=== PATIENT | female | born 1960 ===

== ENCOUNTER 2021-12-08 14:27 | Inpatient (IN) | payer MEDICARE, OTHER ==
--- NOTE | 2021-12-08 14:55 | Emergency Department Report ---
HPI - General Chief Complaint: Chest Pain Time Seen by Provider: 12/08/21 14:45 - HPI HPI: For the last 3 days the patient has been experiencing an increase in her usual vertigo for which she takes meclizine 12.5 mg p.o. twice daily and is not helping. She also complaining of left anterior chest pain that radiates to her left shoulder and left lateral thorax and she describes as sharp intermittent and present for the last 2 to 3 days. She denies numbness tingling focal weakness but does report a headache and generalized body aches for which she roselyn es [place]. She denies nausea vomiting fever chills or any other associated symptoms. Nothing makes this better nor worse. ED Past Medical Hx - Past Medical History Previous Medical History?: Yes Hx COPD: Yes Additional medical history: BRONCHITIS ,VERTIGO, fibromyalgia - Surgical History Past Surgical History?: No - Family History Family history: no significant - Social History Smoking Status: Never Smoker Substance Use Type: None - Medications Home Medications: Home Medications Medication Instructions Recorded Confirmed Last Taken Type Meclizine [Antivert] 25 mg PO TID PRN 10 Days #30 tab 12/08/21 Unknown Rx ED Review of Systems ROS: Stated complaint: BODY PAIN Other details as noted in HPI Other: Physical Exam: Constitutional: AAOX3. No acute distress. No diaphoresis. HENT: Normocephalic. Pupils equal and reactive. No throat edema or erythema. Neck: No neck rigidity or tenderness. Cardiovascular: Heart sounds: No murmur. Normal rate and regular rhythm. Pulses: Intact distal pulses. Lungs: No wheezing or rales. Chest wall: No tenderness. Abdominal: No distension. No mass/pulsatile mass. No abdominal tenderness, guarding nor rebound. Back: No CVA TTP. Musculoskeletal: Normal range of motion. No edema, No calf TTP. Skin: Warm and dry. Neurological: Alert and oriented to person, place, and time. Psychiatric: Mood and affect normal. Normal cognition and memory. Normal judgement. Physical Exam - Physical Exam Vital Signs: Vital Signs 12/08/21 14:35 Pulse Rate 84 Respiratory 18 Rate Blood Pressure 120/69 [Left] O2 Sat by Pulse 99 Oximetry ED Course Vital Signs 12/08/21 14:35 Pulse Rate 84 Respiratory 18 Rate Blood Pressure 120/69 [Left] O2 Sat by Pulse 99 Oximetry - Reevaluation(s) Reevaluation #1: 12/08/21 19:35 EKG done interpreted at 1930 shows a rate of 70, normal. The rhythm is sinus rhythm, normal. There are nonspecific T abnormalities in the anterior leads without any ST or T abnormalities. The patient required some Dilaudid while in the emergency department which made her feel better. We will be discharging her at this time and we will increase her meclizine to 25 mg 3 times daily and she will follow-up with her PCP or return if any other issues arise. ED Medical Decision Making - Lab Data Result diagrams: 12/08/21 15:05 12/08/21 15:05 Critical care attestation.: If time is entered above; I have spent that time in minutes in the direct care of this critically ill patient, excluding procedure time. ED Disposition Clinical Impression: Chronic pain, Chest pain Disposition: HOME / SELF CARE / HOMELESS Is pt being admited?: No Does the pt Need Aspirin: No Condition: Stable Instructions: Nonspecific Chest Pain, Adult Additional Instructions: Make sure to take 25 mg of meclizine every 8 hours as opposed to the 12.5 mg every 12 hours you have been prescribed before. We have included a new prescription for you. Make sure to follow-up with Dr. Ashton, the neurologist as soon as possible. Prescriptions: Meclizine [Antivert] 25 mg PO TID PRN 10 Days #30 tab PRN Reason: Vertigo Referrals: ALO SAMUEL [Other] - 3-5 Days PEDRO ASHTON MD [Staff Physician] - 3-5 Days Print Language: SLOVENIAN
--- NOTE | 2021-12-08 15:14 | XRay Report ---
CHEST 1 VIEW INDICATION: Chest Pain. COMPARISON: None FINDINGS: SUPPORT DEVICES: None. HEART: Within normal limits. LUNGS/PLEURA: Minimal patchy bibasilar airspace disease with otherwise clear lungs. ADDITIONAL FINDINGS: None. IMPRESSION: 1. Lung findings as above. Signer Name: Elmo Bauer MD Signed: 12/08/2021 3:10 PM Workstation Name: [id number]
[2021-12-08] MEDS ORDERED: MECLIZINE 25 MG TAB PO ONE (15:30)
[2021-12-08 15:33] LABS: Basophils % (Auto) 0.6 % (0.0-1.8); Eosinophils # (Auto) 0.2 K/mm3 (0.0-0.4); Eosinophils % (Auto) 2.9 % (0.0-4.3); Hematocrit 39.8 % (30.3-42.9); Hemoglobin 12.9 gm/dl (10.1-14.3); Lymphocytes # (Auto) 3.2 K/mm3 (1.2-5.4); Mean Corpuscular HGB Conc 32 % (30-34); Mean Corpuscular Volume 85 fl (79-97); Monocytes # (Auto) 0.4 K/mm3 (0.0-0.8); Monocytes % (Auto) 6.3 % (0.0-7.3); Platelet Count 252 K/mm3 (140-440); Red Cell Distribution Width 15.5 % (13.2-15.2)
[2021-12-08] MEDS ORDERED: LORazepam 2 MG/ML VIAL IV ONE (15:45)
[2021-12-08 15:55] LABS: Alanine Aminotransferase 24 units/L (7-56); Albumin 4.2 g/dL (3.9-5); Blood Urea Nitrogen 22 mg/dL (7-17); Calcium 9.7 mg/dL (8.4-10.2); Hemolysis Index 1
[2021-12-08 16:06] LABS: BUN/Creatinine Ratio 31
[2021-12-08] MEDS ORDERED: HYDROmorphone 1 MG/1 ML INJ IV ONE ×2 (16:44→23:56)
--- NOTE | 2021-12-08 17:49 | Cat Scan Report ---
CT head/brain wo con INDICATION / CLINICAL INFORMATION: 61 years Female; Headache Dizziness. TECHNIQUE: Routine CT head without contrast. All CT scans at this location are performed using CT dos e reduction for ALARA by means of automated exposure control. COMPARISON: None. FINDINGS: BRAIN / INTRACRANIAL CONTENTS: There appear to be mild cerebral white matter changes most consistent with microvascular angiopathy. The ventricles system is within normal limits in size and configuratio n. The motion degrades the image quality. However, there is no CT evidence of acute intracranial hemo rrhage or significant mass effect. There is incidental mild hyperostosis frontalis interna. ORBITS: No significant abnormality. SINUSES / MASTOIDS: There is scattered opacification and mucosal thickening involving the visualized maxillary and right sphenoid sinuses. CRANIOCERVICAL JUNCTION: No significant abnormality. ADDITIONAL FINDINGS: None. IMPRESSION: 1. The motion degrades the image quality. However, this mild microvascular angiopathy without CT evid ence of acute intracranial hemorrhage. Signer Name: Casper Fernandez MD Signed: 12/08/2021 5:44 PM Workstation Name: [id number]
[2021-12-08] MEDS ORDERED: NITROGLYCERIN 0.4 MG TAB SUBL SL PRN (21:51)
[2021-12-08] MEDS ORDERED: MAGNESIUM HYDROXIDE (MOM) ORAL LIQD UDC PO PRN (21:51)
[2021-12-08] MEDS ORDERED: MORPHINE 4 MG/1 ML INJ IV PRN (21:51)
[2021-12-08] MEDS ORDERED: MORPHINE 2 MG/1 ML INJ IV PRN ×2 (21:51)
[2021-12-08] MEDS ORDERED: ACETAMINOPHEN 325 MG TAB PO PRN ×2 (21:51)
[2021-12-08] MEDS ORDERED: ONDANSETRON 4 MG/2 ML INJ IV PRN (21:51)
--- NOTE | 2021-12-08 22:05 | History and Physical Report ---
History of Present Illness Date of examination: 12/08/21 Date of admission: 12/08/2021 Chief complaint: Chest Pain History of present illness: 61-year-old female with significant past medical history of COPD and fibromyalgia presenting to the emergency room today with complaints of vertigo which has been ongoing throughout the day. Patient states that she has had 2 episodes of vertigo today and she hardly stand straight without the room spinning. She had been taking meclizine 12.5 mg twice daily without any significant improvement. She however indicates that he subsequently started having left-sided chest pain radiating towards the left upper extremity with some associated tingling sensation. There has been no known relieving or exacerbating factor. She denies any headache, no blurry vision, no nausea or vomiting and no abdominal pain. Work-up in the emergency room today including troponins, EKG, and CT of the head has been unremarkable. Chest x-ray ordered however shows some mild patchy bibasilar airspace disease otherwise clear lungs. Past History Past Medical History: other (Fibromyalgia) Past Surgical History: No surgical history Social history: no significant social history Family history: no significant family history Medications and Allergies Allergies Allergy/AdvReac Type Severity Reaction Status Date / Time No Known Allergies Allergy Verified 12/08/21 15:28 Home Medications Medication Instructions Recorded Confirmed Last Taken Type Meclizine [Antivert] 25 mg PO TID PRN 10 Days #30 tab 12/08/21 Unknown Rx Review of Systems Constitutional: no fever, no chills Ears, nose, mouth and throat: no nasal congestion, no sore throat Cardiovascular: chest pain, no palpitations Respiratory: no cough, no shortness of breath Gastrointestinal: no abdominal pain, no nausea, no vomiting, no diarrhea Genitourinary Female: no pelvic pain, no flank pain, no dysuria Musculoskeletal: no neck pain, no low back pain Integumentary: no rash, no pruritis Neurological: no headaches, no confusion Psychiatric: no anxiety, no depression Endocrine: no polyphagia, no polydipsia, no polyuria, no nocturia Exam - Constitutional Vitals: Temp Pulse Resp BP Pulse Ox 97.2 F L 73 10 L 116/87 95 12/08/21 21:38 12/08/21 20:30 12/08/21 20:30 12/08/21 20:46 12/08/21 20:46 General appearance: Present: no acute distress, well-nourished - EENT Eyes: Present: PERRL, EOM intact. Absent: scleral icterus ENT: hearing intact, clear oral mucosa, dentition normal - Neck Neck: Present: supple, normal ROM - Respiratory Respiratory effort: normal Respiratory: bilateral: CTA - Cardiovascular Rhythm: regular Heart Sounds: Present: S1 & S2. Absent: gallop, systolic murmur, diastolic murmur, rub, click - Extremities Extremities: no ischemia, pulses intact, pulses symmetrical, No edema, normal temperature, normal color, Full ROM Peripheral Pulses: within normal limits - Abdominal General gastrointestinal: Present: soft, non-tender, non-distended, normal bowel sounds. Absent: mass - Integumentary Integumentary: Present: clear, warm, dry, normal turgor. Absent: rash - Musculoskeletal Musculoskeletal: strength equal bilaterally - Psychiatric Psychiatric: appropriate mood/affect, intact judgment & insight, memory intact, cooperative - Neurologic Neurologic: CNII-XII intact, no focal deficits, moves all extremities HEART Score - HEART Score Troponin: Troponin T < 0.010 ng/mL (0.00-0.029) 12/08/21 17:46 Results - Labs CBC & Chem 7: 12/08/21 15:05 12/08/21 15:05 Labs: Abnormal lab results 12/08/21 12/08/21 Range/Units 15:05 15:05 MCH 27 L (28-32) pg RDW 15.5 H (13.2-15.2) % Lymph % (Auto) 55.0 H (13.4-35.0) % Seg Neutrophils % 35.2 L (40.0-70.0) % Chloride 108.3 H (98-107) mmol/L Carbon Dioxide 21 L (22-30) mmol/L BUN 22 H (7-17) mg/dL Alkaline Phosphatase 227 H (35-129) units/L Assessment and Plan - Patient Problems (1) Chest pain Current Visit: Yes Status: Acute Plan to address problem: Etiology is unclear. Will however check serial cardiac enzymes, schedule for echocardiogram and also monitor EKG. We will commence on daily aspirin, sublingual nitroglycerin and IV morphine as needed for chest pain. Consult placed to cardiology for evaluation. (2) Chronic pain Current Visit: Yes Status: Acute Plan to address problem: Patient has known history of fibromyalgia. Will place on analgesic medication as needed. (3) Vertigo Current Visit: Yes Status: Acute Plan to address problem: We will resume patient on meclizine. Consult will be placed to neurology for evaluation and recommendations. May consider MRI of the brain if no improvement. (4) DVT prophylaxis Current Visit: Yes Status: Acute Plan to address problem: Patient placed on subcutaneous heparin. (5) Full code status Current Visit: Yes Status: Acute Plan to address problem: Patient is full code.
[2021-12-08] MEDS ORDERED: MECLIZINE 25 MG TAB PO PRN (23:28)
[2021-12-09 05:32] LABS: Basophils % (Auto) 0.5 % (0.0-1.8); Eosinophils # (Auto) 0.2 K/mm3 (0.0-0.4); Eosinophils % (Auto) 3.4 % (0.0-4.3); Hematocrit 38.7 % (30.3-42.9); Hemoglobin 12.5 gm/dl (10.1-14.3); Lymphocytes # (Auto) 2.8 K/mm3 (1.2-5.4); Lymphocytes % (Auto) 52.1 % (13.4-35.0); Mean Corpuscular HGB Conc 32 % (30-34); Mean Corpuscular Volume 84 fl (79-97); Monocytes # (Auto) 0.4 K/mm3 (0.0-0.8); Platelet Count 242 K/mm3 (140-440); Red Blood Count 4.61 M/mm3 (3.65-5.03); Red Cell Distribution Width 15.3 % (13.2-15.2)
[2021-12-09] MEDS: traMADol 50 MG TAB PO PRN ×2 (05:51→12:21)
--- NOTE | 2021-12-09 08:12 | Consultation ---
History of Present Illness Consult date: 12/09/21 Reason for Consult: CP and vertigo,Hx of Fibromyalgia History of present illness: Chest Pain History of present illness: 61-year-old female with significant past medical history of COPD and fibromyalgia presenting to the emergency room today with complaints of vertigo which has been ongoing throughout the day. Patient states that she has had 2 episodes of vertigo today and she hardly stand straight without the room spinning. She had been taking meclizine 12.5 mg twice daily without any significant improvement. She however indicates that he subsequently started having left-sided chest pain radiating towards the left upper extremity with some associated tingling sensation. There has been no known relieving or exacerbating factor. She denies any headache, no blurry vision, no nausea or vomiting and no abdo conrad pain. Work-up in the emergency room today including troponins, EKG, and CT of the head has been unremarkable. Chest x-ray ordered however shows some mild patchy bibasilar airspace disease otherwise clear lungs. Today she is still with headache more left shoulder radiate to chest according to her she is with hx of left rotator cuff and long standing hx of Fibromyalgia was followed by Pain clinic and currently by her PCP ,did not see neurologist for a while she is with long standing hx of Migraine , according to her for the last 10 years she is with daily headache at time associated with nausea and sensitivity to light she is placed on Topamax 100 mg bid , Neurontine,flexeril,welbutrinXr 450 mg daily on chronic Oxycodon 10 mg tid for years wants deluaudid !!!! According to pt. she is with new onst vertigo when she turn head right or left last 3-4 minutes no nausea , had same in october was treated with antivert she is with long hx of fibromyalgia and sleeping difficulty denied focal weakness or diblpia, Past History Past Medical History: other (Fibromyalgia) Past Surgical History: No surgical history Social history: no significant social history Family history: no significant family history Medications and Allergies Allergies Allergy/AdvReac Type Severity Reaction Status Date / Time No Known Allergies Allergy Verified 12/08/21 15:28 Home Medications Medication Instructions Recorded Confirmed Last Taken Type Meclizine [Antivert] 25 mg PO TID PRN 10 Days #30 tab 12/08/21 Unknown Rx Review of Systems Constitutional: no fever, no chills Ears, nose, mouth and throat: no nasal congestion, no sore throat Cardiovascular: chest pain, no palpitations Respiratory: no cough, no shortness of breath Gastrointestinal: no abdominal pain, no nausea, no vomiting, no diarrhea Genitourinary Female: no pelvic pain, no flank pain, no dysuria Musculoskeletal: no neck pain, no low back pain Integumentary: no rash, no pruritis Neurological: no headaches, no confusion Psychiatric: no anxiety, no depression Endocrine: no polyphagia, no polydipsia, no polyuria, no nocturia Exam Past History Past Medical History: other (Fibromyalgia) Past Surgical History: No surgical history Social history: no significant social history Family history: no significant family history Medications and Allergies Allergies Allergy/AdvReac Type Severity Reaction Status Date / Time morphine Allergy Angioedema Verified 12/09/21 00:30 Home Medications Medication Instructions Recorded Confirmed Last Taken Type Meclizine [Antivert] 25 mg PO TID PRN 10 Days #30 tab 12/08/21 Unknown Rx Gabapentin [Neurontin] 800 mg PO Q8H 12/09/21 12/09/21 12/07/21 History Hydroxyzine HCl [hydrOXYzine] 50 mg PO QHS 12/09/21 12/09/21 12/06/21 History Topiramate [Topamax] 100 mg PO BID 12/09/21 12/09/21 12/06/21 History Umeclidinium Brm/Vilanterol Tr 1 each IH DAILY 12/09/21 12/09/21 12/07/21 History [Anoro Ellipta 62.5-25 Mcg INH] buPROPion XL [Wellbutrin Xl] 300 mg PO QAM 12/09/21 12/09/21 12/07/21 History Active Meds: Active Medications Acetaminophen (Acetaminophen 325 Mg Tab) 650 mg PO Q4H PRN PRN Reason: Pain MILD(1-3)/Fever >100.5/RODRIGUEZ Aspirin (Aspirin Ec 325 Mg Tab) 325 mg PO QDAY KENNEY Magnesium Hydroxide (Magnesium Hydroxide (Mom) Oral Liqd Udc) 30 ml PO Q4H PRN PRN Reason: Constipation Meclizine HCl (Meclizine 25 Mg Tab) 25 mg PO Q8H PRN PRN Reason: Vertigo Nitroglycerin (Nitroglycerin 0.4 Mg Tab Subl) 0.4 mg SL Q5M PRN PRN Reason: Chest Pain Ondansetron HCl (Ondansetron 4 Mg/2 Ml Inj) 4 mg IV Q8H PRN PRN Reason: Nausea And Vomiting Last Admin: 12/09/21 00:39 Dose: 4 mg Sodium Chloride (Sodium Chloride 0.9% 10 Ml Flush Syringe) 10 ml IV BID KENNEY Last Admin: 12/09/21 05:54 Dose: 10 ml Sodium Chloride (Sodium Chloride 0.9% 10 Ml Flush Syringe) 10 ml IV PRN PRN PRN Reason: LINE FLUSH Tramadol HCl (Tramadol 50 Mg Tab) 50 mg PO Q6H PRN PRN Reason: Pain, Moderate (4-6) Last Admin: 12/09/21 05:51 Dose: 50 mg Physical Examination - Vital Signs Vital Signs: Vital Signs Pulse Resp BP Pulse Ox 84 18 120/69 99 12/08/21 14:35 12/08/21 14:35 12/08/21 14:35 12/08/21 14:35 Results - Laboratory Findings CBC and BMP: 12/09/21 04:27 12/08/21 15:05 Abnormal Lab Findings: Abnormal Labs 12/08/21 12/08/21 12/09/21 15:05 15:05 04:27 MCH 27 L 27 L RDW 15.5 H 15.3 H Lymph % (Auto) 55.0 H 52.1 H [place] % (Auto) 8.0 H Seg Neutrophils % 35.2 L 36.0 L Chloride 108.3 H Carbon Dioxide 21 L BUN 22 H Alkaline Phosphatase 227 H Assessment and Plan 61-year-old female with significant past medical history of COPD and fibromyalgia presenting to the emergency room today with complaints of vertigo which has been ongoing throughout the day. Patient states that she has had 2 episodes of vertigo today and she hardly stand straight without the room spinning. She had been taking meclizine 12.5 mg twice daily without any significant improvement. She however indicates that he subsequently started having left-sided chest pain radiating towards the left upper extremity with some associated tingling sensation. There has been no known relieving or exacerbating factor. She denies any headache, no blurry vision, no nausea or vomiting and no abdominal pain. - Patient Problems # Vertigo recurrent started In early October related to head motion -Associated with Headache chronic -Hx of Fibromyalgia on [facility] pharmacy with lack of significant improvment -CT brain is remarkable for possible angiopathy -MRI brain is pending -CTA brain and neck r/o dissection!!! -mantain ASA 325 mg and Lipitor -LDL,A1C are pending - maintain home medications { Oxycodon 10/325 mgtid,Flexeril 10 mg tid,Neurontine decrease to 400 mg tid, welbutrinXr 450 mg daily, topamax 100 mg bid} -Trial of scopolamin patch q 3 days -Amitriptylin 50 mg qhs -ESR -PT therapy # Chronic headache -for years add to her problem -she is on Topamax 100 mg BID with lack of much improvment -intake of pain medications for years # Hx of Fibromyalgia -with chronic muscle ache and pain -left shoulder rotator cuff -pt. is on multiple medications -Pt therapy -rheumatology/neurology/Chronic pain managment follow up !!! # Diabetes mellitus -Patient placed on sliding scale insulin. Will monitor Accu-Cheks.- # Depression -We will resume routine home medications. # Hyperlipidemia -Continue routine home medications and monitor lipid profile. # Hypertension -We will resume routine antihypertensive medication and monitor vital signs closely. # DVT prophylaxis -Patient placed on subcutaneous heparin. # Full code status -Patient is full code. PLAN 1- MRI brain 2- CTA brain and neck 3- Echo 4- ESR 5- PT therapy 6- maintain home medications 7- Scopolamine patch q 3 days prn for vertigo 8- Elevil 50 mg qhs. 9- neurology follow up and rheumatology , pain clinic will follow as needed
--- NOTE | 2021-12-09 11:00 | Consultation ---
History of Present Illness Consult date: 12/09/21 Consult reason: chest pain History of present illness: 61-year-old -[place] female who is presented with symptoms of vertigo and migraine headaches. She had complained about pain in the head which radiates down her neck and chest and for this symptoms cardiology consult was obtained Past History Past Medical History: other (Fibromyalgia, Migraine, and Vertigo) Past Surgical History: No surgical history Social history: no significant social history Family history: no significant family history Medications and Allergies Allergies Allergy/AdvReac Type Severity Reaction Status Date / Time morphine Allergy Angioedema Verified 12/09/21 00:30 Home Medications Medication Instructions Recorded Confirmed Last Taken Type Meclizine [Antivert] 25 mg PO TID PRN 10 Days #30 tab 12/08/21 Unknown Rx Gabapentin [Neurontin] 800 mg PO Q8H 12/09/21 12/09/21 12/07/21 History Hydroxyzine HCl [hydrOXYzine] 50 mg PO QHS 12/09/21 12/09/21 12/06/21 History Topiramate [Topamax] 100 mg PO BID 12/09/21 12/09/21 12/06/21 History Umeclidinium Brm/Vilanterol Tr 1 each IH DAILY 12/09/21 12/09/21 12/07/21 History [Anoro Ellipta 62.5-25 Mcg INH] buPROPion XL [Wellbutrin Xl] 300 mg PO QAM 12/09/21 12/09/21 12/07/21 History Active Meds: Active Medications Acetaminophen (Acetaminophen 325 Mg Tab) 650 mg PO Q4H PRN PRN Reason: Pain MILD(1-3)/Fever >100.5/RODRIGUEZ Aspirin (Aspirin Ec 325 Mg Tab) 325 mg PO QDAY KENNEY Magnesium Hydroxide (Magnesium Hydroxide (Mom) Oral Liqd Udc) 30 ml PO Q4H PRN PRN Reason: Constipation Meclizine HCl (Meclizine 25 Mg Tab) 25 mg PO Q8H PRN PRN Reason: Vertigo Nitroglycerin (Nitroglycerin 0.4 Mg Tab Subl) 0.4 mg SL Q5M PRN PRN Reason: Chest Pain Ondansetron HCl (Ondansetron 4 Mg/2 Ml Inj) 4 mg IV Q8H PRN PRN Reason: Nausea And Vomiting Last Admin: 12/09/21 00:39 Dose: 4 mg Sodium Chloride (Sodium Chloride 0.9% 10 Ml Flush Syringe) 10 ml IV BID KENNEY Last Admin: 12/09/21 05:54 Dose: 10 ml Sodium Chloride (Sodium Chloride 0.9% 10 Ml Flush Syringe) 10 ml IV PRN PRN PRN Reason: LINE FLUSH Tramadol HCl (Tramadol 50 Mg Tab) 50 mg PO Q6H PRN PRN Reason: Pain, Moderate (4-6) Last Admin: 12/09/21 05:51 Dose: 50 mg Review of Systems Constitutional: no weight loss, no weight gain, no fever, no chills Ears, nose, mouth and throat: deferred Breasts: deferred Cardiovascular: no chest pain, no orthopnea, no palpitations, no edema, no sh ortness of breath Respiratory: no cough, no shortness of breath, no dyspnea on exertion, no congestion Gastrointestinal: no abdominal pain, no nausea, no vomiting, no diarrhea, no constipation Genitourinary Female: no pelvic pain, no flank pain, no menorrhagia Rectal: no pain, no incontinence Musculoskeletal: neck pain, no neck stiffness Integumentary: no rash, no pruritis Neurological: migraines Endocrine: no cold intolerance, no heat intolerance, no polyphagia, no excessive thirst, no polydipsia, no polyuria Hematologic/Lymphatic: no easy bruising, no easy bleeding Allergic/Immunologic: no urticaria, no allergic rhinitis, no wheezing Physical Examination Vital Signs Pulse Resp BP Pulse Ox 84 18 120/69 99 12/08/21 14:35 12/08/21 14:35 12/08/21 14:35 12/08/21 14:35 General appearance: no acute distress HEENT: Positive: PERRL, Normocephaly, Mucus Membranes Moist Neck: Positive: neck supple, trachea midline. Negative: JVD/HJR Cardiac: Positive: Reg Rate and Rhythm, S1/S2. Negative: S3, S4 Lungs: Positive: Normal Exam, clear to auscultation, No Wheeze, Rales, Rhonchi Neuro: Positive: Grossly Intact Abdomen: Positive: Unremarkable, Soft Extremities: Absent: edema Results 12/09/21 04:27 12/08/21 15:05 Cardiac Enzymes 12/08/21 Range/Units 15:05 AST 15 (5-40) units/L CBC 12/08/21 12/09/21 Range/Units 15:05 04:27 WBC 5.9 5.4 (4.5-11.0) K/mm3 RBC 4.70 4.61 (3.65-5.03) M/mm3 Hgb 12.9 12.5 (10.1-14.3) gm/dl Hct 39.8 38.7 (30.3-42.9) % Plt Count 252 242 (140-440) K/mm3 Lymph # (Auto) 3.2 2.8 (1.2-5.4) K/mm3 [place] # (Auto) 0.4 0.4 (0.0-0.8) K/mm3 Eos # (Auto) 0.2 0.2 (0.0-0.4) K/mm3 Baso # (Auto) 0.0 0.0 (0.0-0.1) K/mm3 Comprehensive Metabolic Panel 12/08/21 Range/Units 15:05 Sodium 139 (137-145) mmol/L Potassium 4.3 (3.6-5.0) mmol/L Chloride 108.3 H (98-107) mmol/L Carbon Dioxide 21 L (22-30) mmol/L BUN 22 H (7-17) mg/dL Creatinine 0.7 (0.6-1.2) mg/dL Glucose 87 (65-100) mg/dL Calcium 9.7 (8.4-10.2) mg/dL AST 15 (5-40) units/L ALT 24 (7-56) units/L Alkaline Phosphatase 227 H (35-129) units/L Total Protein 6.9 (6.3-8.2) g/dL Albumin 4.2 (3.9-5) g/dL - EKG Interpretation EKG: sinus rhythm EKG interpretations - Telemetry EKG Rhythm: Sinus Rhythm Assessment and Plan 1. Paroxysmal vertigo 2. Acute migraine headaches 3. History of fibromyalgia Plan. Patient is currently stable patient's rhythm is sinus. Serial troponin levels are negative Patient's presenting symptoms are noncardiac. Will recommend neurologic evaluation
[2021-12-09] MEDS ORDERED: TOPIRAMATE TAB 100 MG TAB PO SCH (12:00)
[2021-12-09] MEDS: ASPIRIN EC 325 MG TAB PO SCH (12:21)
--- NOTE | 2021-12-09 12:31 | Progress Note ---
Assessment and Plan 61-year-old female with significant past medical history of COPD and fibromyalgia presenting to the emergency room with complaints of vertigo which has been ongoing throughout the day. Patient states that she has had 2 episodes of vertigo yesterday and she hardly stand straight without the room spinning. She had been taking meclizine 12.5 mg twice daily without any significant improvement. She however indicates that he subsequently started having left- sided chest pain radiating towards the left upper extremity with some associated tingling sensation. There has been no known relieving or exacerbating factor. She denies any headache, no blurry vision, no nausea or vomiting and no abdominal pain. Patient has been admitted for further evaluation and management. 12/09: Patient has been seen by neurology and cardiology. Cardiology recommended to continue neurology work-up and did not recommend any further cardiac intervention. 1- MRI brain 2- CTA brain and neck 3- Echo 4- ESR 5- PT therapy 6- maintain home medications 7- Scopolamine patch q 3 days prn for vertigo 8- Elevil 50 mg qhs. Assessment and plan: --Noncardiac chest pain, likely related to her migraine headache Cardiology consulted and recommended neurology work-up Continue to follow clinically -- Vertigo -recurrent started In early October related to head motion and Associated with Headache chronic -Hx of Fibromyalgia on [facility] with lack of significant improvment -CT brain is remarkable for possible angiopathy -Neurology consulted -Ordered for MRI brain and CTA brain and neck r/o dissection!!! -Continue ASA 325 mg and Lipitor -LDL,A1C are pending -Trial of scopolamin patch q 3 days -Amitriptylin 50 mg qhs -Ordered ESR -PT therapy -- Chronic headache, likely migraine -for years add to her problem -she is on Topamax 100 mg BID with lack of much improvement -intake of pain medications for years -- Hx of Fibromyalgia -- cont home medications (Oxycodon 10/325 mgtid,Flexeril 10 mg tid,Neurontine decrease to 400 mg tid) -Pt therapy -rheumatology/neurology/Chronic pain managment outpt follow up !!! -- Diabetes mellitus -Patient placed on sliding scale insulin. Will monitor Accu-Cheks.- -- Depression -We will resume routine home medications - welbutrinXr 450 mg daily -- Hyperlipidemia -Continue routine home medications and monitor lipid profile. -- Hypertension -We will resume routine antihypertensive medication and monitor vital signs closely. -- DVT prophylaxis -Patient placed on subcutaneous heparin. -- Full code status -Patient is full code. Subjective Date of service: 12/09/21 Interval history: Patient seen and examined. Medical records and medication list reviewed. No acute event overnight noted by the RN. Patient denies any chest pain or difficulty breathing. Patient is tolerating diet. Discussed plan of care at bedside with patient. Objective - Exam Narrative Exam: GENERAL: well-developed and well-nourished lying on bed appeared to be in no discomfort. HEENT: Normocephalic. Atraumatic. No conjunctival congestion or icterus. Patient has moist mucous membranes. NECK: Supple. Trachea midline. CHEST/LUNGS: Clear to auscultated bilaterally, breathing nonlabored. No wheezes crackles or rhonchi. HEART/CARDIOVASCULAR: Regular in rate and rhythm. S1 and S2 positive. ABDOMEN: Abdomen is soft, nontender. Patient has normal bowel sounds. SKIN: There is no rash. Warm and dry. NEURO: No focal motor deficit. Follows command. MUSCULOSKELETAL: No joint effusion or tenderness. EXTRIMITY: No edema, no cyanosis or clubbing. PSYCH: Cooperative. - Constitutional Vitals: Vital Signs - 12hr 12/09/21 12/09/21 12/09/21 00:30 00:40 00:50 Temperature Pulse Rate 83 85 84 Respiratory 17 14 16 Rate Blood Pressure 96/63 96/63 96/63 O2 Sat by Pulse 95 96 92 Oximetry 12/09/21 12/09/21 12/09/21 01:00 01:10 01:20 Temperature Pulse Rate 85 85 83 Respiratory 20 13 21 Rate Blood Pressure 96/63 96/63 96/63 O2 Sat by Pulse 92 92 Oximetry 12/09/21 12/09/21 12/09/21 01:57 02:58 07:23 Temperature 97.4 F L 98.9 F Pulse Rate 80 97 H Respiratory 20 18 Rate Blood Pressure 104/72 95/58 O2 Sat by Pulse 97 97 98 Oximetry 12/09/21 10:00 Temperature Pulse Rate 97 H Respiratory Rate Blood Pressure O2 Sat by Pulse Oximetry - Labs CBC & Chem 7: 12/09/21 04:27 12/08/21 15:05 Labs: Abnormal lab results 0512/08/21 12/09/21 Range/Units 15:05 15:05 04:27 MCH 27 L 27 L (28-32) pg RDW 15.5 H 15.3 H (13.2-15.2) % Lymph % (Auto) 55.0 H 52.1 H (13.4-35.0) % [place] % (Auto) 8.0 H (0.0-7.3) % Seg Neutrophils % 35.2 L 36.0 L (40.0-70.0) % Chloride 108.3 H (98-107) mmol/L Carbon Dioxide 21 L (22-30) mmol/L BUN 22 H (7-17) mg/dL Alkaline Phosphatase 227 H (35-129) units/L HEART Score - HEART Score Troponin: Troponin T < 0.010 ng/mL (0.00-0.029) 12/09/21 04:27
[2021-12-09] MEDS ORDERED: oxyCODONE /ACETAMINOPHEN 5-325MG TAB PO PRN (12:59)
[2021-12-09] MEDS ORDERED: NON-FORMULARY EACH (Gabapentin [Neurontin] 800 MG Tablet) PO SCH (13:00)
[2021-12-09] MEDS: GABAPENTIN 400 MG CAP PO SCH ×2 (13:59→21:12)
[2021-12-09] MEDS: oxyCODONE /ACETAMINOPHEN 5-325MG TAB PO PRN ×2 (13:59→21:16)
[2021-12-09] MEDS ORDERED: GABAPENTIN 400 MG CAP PO SCH (14:00)
[2021-12-09] MEDS: buPROPion XL 150 MG TAB PO SCH (14:26)
[2021-12-09] MEDS: SCOPOLAMINE TRANSDERMAL PATCH 72 HR TD SCH (14:26)
[2021-12-09] MEDS: BUDESONIDE 0.5 MG/2 ML NEBU IH SCH (14:57)
[2021-12-09] MEDS: ARFORMOTEROL 15 MCG/2 ML NEBU IH SCH (14:58)
[2021-12-09] MEDS: TOPIRAMATE TAB 100 MG TAB PO SCH (21:12)
[2021-12-09] MEDS: AMITRIPTYLINE 25 MG TAB PO SCH (21:13)
[2021-12-09] MEDS: NALDEMEDINE TOSYLATE 0.2 MG PO SCH (21:13)
[2021-12-09] MEDS ORDERED: NON-FORMULARY EACH (Hydroxyzine Hcl [Hydroxyzine] 50 MG Tablet) PO SCH (22:00)
[2021-12-10] MEDS: GABAPENTIN 400 MG CAP PO SCH ×3 (05:12→21:21)
[2021-12-10] MEDS: oxyCODONE /ACETAMINOPHEN 5-325MG TAB PO PRN ×3 (05:12→16:41)
[2021-12-10] MEDS ORDERED: REGADENOSON 0.4 MG/5 ML INJ IV ONE (09:00)
[2021-12-10] MEDS: buPROPion XL 150 MG TAB PO SCH (09:09)
[2021-12-10] MEDS: TOPIRAMATE TAB 100 MG TAB PO SCH ×2 (09:10→21:21)
[2021-12-10] MEDS: traMADol 50 MG TAB PO PRN ×2 (09:11→21:23)
[2021-12-10] MEDS: ASPIRIN EC 325 MG TAB PO SCH (09:11)
[2021-12-10] MEDS: NALDEMEDINE TOSYLATE 0.2 MG PO SCH (09:12)
[2021-12-10] MEDS: ARFORMOTEROL 15 MCG/2 ML NEBU IH SCH ×3 (09:42→20:46)
[2021-12-10] MEDS: BUDESONIDE 0.5 MG/2 ML NEBU IH SCH ×3 (09:42→20:46)
--- NOTE | 2021-12-10 11:18 | Progress Note ---
Assessment and Plan 1. Paroxysmal vertigo 2. Acute migraine headaches 3. History of fibromyalgia Plan. Patient is currently stable patient's rhythm is sinus. Serial troponin levels are negative. Echocardiogram done shows normal left ventricular size and function. Patient's presenting symptoms are noncardiac. Will recommend neurologic evaluation Patient had breakfast today stress MPI not done. This test given high or low pretest probability for ischemic coronary artery disease can be done as an outpatient. Subjective Date of service: 12/10/21 Interval history: No cardiac symptoms. Objective Vital Signs Temp Pulse Resp BP Pulse Ox 12/10/21 10:00 86 12/10/21 08:54 14 98 12/10/21 07:48 97.6 F 79 18 95/58 99 12/10/21 05:11 77 18 102/61 97 12/10/21 02:00 85 98 12/10/21 01:24 97.3 F L 76 18 93/65 97 12/09/21 19:45 97.2 F L 90 16 99/71 97 12/09/21 15:23 98.0 F 83 18 115/74 97 12/09/21 14:00 98 - Physical Examination HEENT: Positive: PERRL, Normocephaly, Mucus Membranes Moist Neck: Positive: neck supple, trachea midline. Negative: JVD/HJR Cardiac: Positive: Regular Rate, S1/S2. Negative: S3, S4 Lungs: Positive: clear to auscultation, No Wheeze, Rales, Rhonchi Neuro: Positive: Grossly Intact Abdomen: Positive: Unremarkable, Soft Extremities: Absent: edema
--- NOTE | 2021-12-10 12:40 | Discharge Summary ---
Providers - Providers Date of Admission: 12/08/21 21:51 Date of discharge: 12/10/21 Attending physician: RITESH ZAFAR 12/08/21 Consult to Cardiac Rehabilitation [CONS] Routine Reason For Exam: Phase I 12/08/21 21:51 Consult to Cardiology [CONS] Routine Consulting Provider: BELKYS VARGHESE Reason For Exam: CHEST PAIN 12/08/21 23:28 Consult to Physician [CONS] Routine Comment: Consulting Provider: ROLANDO SPARKS Physician Instructions: Reason For Exam: Intractable vertigo 12/09/21 12:24 Physical Therapy Evaluation and Treat [CONS] Routine Comment: Reason For Exam: Debility Hospitalization Condition: Stable Disposition: 01 HOME / SELF CARE / HOMELESS Final Discharge Diagnosis (Prints w/discharge instructions): 1. Paroxysmal vertigo. 2. Acute migraine headaches. 3. History of fibromyalgia Time spent for discharge: 34 minutes Core Measure Documentation - Palliative Care Palliative Care/ Comfort Measures: Not Applicable - Core Measures Any of the following diagnoses?: none Exam - Physical Exam Narrative exam: GENERAL: well-developed and well-nourished lying on bed appeared to be in no discomfort. HEENT: Normocephalic. Atraumatic. No conjunctival congestion or icterus. Patient has moist mucous membranes. NECK: Supple. Trachea midline. CHEST/LUNGS: Clear to auscultated bilaterally, breathing nonlabored. No wheezes crackles or rhonchi. HEART/CARDIOVASCULAR: Regular in rate and rhythm. S1 and S2 positive. ABDOMEN: Abdomen is soft, nontender. Patient has normal bowel sounds. SKIN: There is no rash. Warm and dry. NEURO: No focal motor deficit. Follows command. MUSCULOSKELETAL: No joint effusion or tenderness. EXTRIMITY: No edema, no cyanosis or clubbing. PSYCH: Cooperative. - Constitutional Vitals: Temp Pulse Resp BP Pulse Ox 97.6 F 86 14 95/58 98 12/10/21 07:48 12/10/21 10:00 12/10/21 08:54 12/10/21 07:48 12/10/21 08:54 Plan Activity: advance as tolerated Weight Bearing Status: Weight Bear as Tolerated Diet: low fat, low salt Follow up with: ALO SAMUEL [Other] - 3-5 Days PEDRO ASHTON MD [Staff Physician] - 3-5 Days HONORIO JUAN MD [Staff Physician] - 7 Days Prescriptions: Amitriptyline [Elavil] 50 mg PO QHS #14 tablet Meclizine [Antivert] 25 mg PO TID PRN 10 Days #30 tab PRN Reason: Vertigo Scopolamine [Transderm-Scop] 1 each TD Q3D #7 patch
--- NOTE | 2021-12-10 16:25 | Cat Scan Report ---
CTA NECK WITH CONTRAST 12/10/2021 INDICATION / CLINICAL INFORMATION: vertigo. And headache COMPARISON: None. TECHNIQUE: Routine CTA of the neck is performed. 3-D/MIP reformats were postprocessed. Percentage st enosis is determined by direct quantitative measurements of diseased internal carotid artery diameter compared with normal distal internal carotid artery reference segments or by criteria similar to DHARMESH CET where applicable. All CT scans at this location are performed using CT dose reduction for ALARA b y means of automated exposure control. CONTRAST: 100 ml of Omnipaque 350 FINDINGS: Carotid bifurcations: The bifurcations are positioned medially posterior to the larynx. This is a nor mal acquired variant. There is no evidence of carotid bifurcation stenosis. Carotid arteries: No significant abnormality. Cervical vertebral arteries: Vertebral arteries are relatively hypoplastic on a developmental basis, normal variant. Aortic arch: No significant abnormality. None. IMPRESSION: No significant abnormality. Signer Name: Jesse Celaya MD Signed: 12/10/2021 4:21 PM Workstation Name: [id number]
--- NOTE | 2021-12-10 16:30 | Cat Scan Report ---
CTA HEAD WITH CONTRAST 12/10/2021 HISTORY: vertigo. COMPARISON: None. TECHNIQUE: All CT scans at this location are performed using CT dose reduction for ALARA by means of automated exposure control.. 3-D/MIP reformats postprocessed. Percentage stenosis is determined by d irect quantitative measurements of diseased internal carotid artery diameter compared with normal dis [place] internal carotid artery reference segments or by criteria similar to NASCET where applicable. CONTRAST: 100 ml of Omnipaque 350 FINDINGS: CTA HEAD: Intracranial vertebral arteries: Hypoplastic on a developmental basis. Normal variant Basilar artery: Hypoplastic on a developmental basis. Normal variant Posterior cerebral arteries: No significant abnormality. Relatively prominent posterior to indicating arteries are present bilaterally,. Intracranial internal carotid arteries: No significant abnormality. Anterior cerebral arteries: No significant abnormality. Middle cerebral arteries: No significant abnormality. Dural venous sinuses:Not optimally opacified. No significant abnormality. Additional findings: None. IMPRESSION: 1. No significant abnormality. Signer Name: Jesse Celaya MD Signed: 12/10/2021 4:26 PM Workstation Name: [id number]
--- NOTE | 2021-12-10 20:16 | Electrocardiograph Report ---
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
[2021-12-10] MEDS: AMITRIPTYLINE 25 MG TAB PO SCH (21:21)
[2021-12-11] MEDS: GABAPENTIN 400 MG CAP PO SCH ×3 (06:48→21:40)
[2021-12-11] MEDS: traMADol 50 MG TAB PO PRN ×2 (08:43→21:42)
[2021-12-11] MEDS: TOPIRAMATE TAB 100 MG TAB PO SCH ×2 (09:24→21:40)
[2021-12-11] MEDS: BUDESONIDE 0.5 MG/2 ML NEBU IH SCH ×2 (09:24→20:06)
[2021-12-11] MEDS: buPROPion XL 150 MG TAB PO SCH (09:24)
[2021-12-11] MEDS: ASPIRIN EC 325 MG TAB PO SCH (09:24)
[2021-12-11] MEDS: ARFORMOTEROL 15 MCG/2 ML NEBU IH SCH ×2 (09:25→20:06)
[2021-12-11] MEDS: NALDEMEDINE TOSYLATE 0.2 MG PO SCH (09:25)
--- NOTE | 2021-12-11 09:41 | Progress Note ---
Assessment and Plan 1. Paroxysmal vertigo 2. Acute migraine headaches 3. History of fibromyalgia Plan. Patient is currently stable patient's rhythm is sinus. Serial troponin levels are negative. Echocardiogram done shows normal left ventricular size and function. Patient's presenting symptoms are noncardiac. Will recommend neurologic evaluation Patient had breakfast today stress MPI not done. This test given low pretest probability for ischemic coronary artery disease can be done as an outpatient. Subjective Date of service: 12/11/21 Interval history: No cardiac symptoms. Objective Vital Signs Temp Pulse Pulse Resp Resp BP Pulse Ox 12/11/21 08:09 98.7 F 84 112/80 99 12/11/21 04:11 98.2 F 84 18 100/60 99 12/11/21 02:00 88 12/11/21 00:11 98.5 F 89 19 95/58 98 12/10/21 20:47 88 16 12/10/21 20:07 98.1 F 84 20 93/55 98 12/10/21 20:00 98 12/10/21 16:47 97.8 F 81 18 91/66 98 12/10/21 15:16 97.1 F L 90 22 124/93 99 12/10/21 11:57 98.5 F 87 18 96/59 96 12/10/21 10:00 86 - Physical Examination HEENT: Positive: PERRL, Normocephaly, Mucus Membranes Moist Neck: Positive: neck supple, trachea midline. Negative: JVD/HJR Cardiac: Positive: Regular Rate, S1/S2, PMI, Laterally Displaced. Negative: S3, S4 Lungs: Positive: clear to auscultation, No Wheeze, Rales, Rhonchi Neuro: Positive: Grossly Intact Abdomen: Positive: Unremarkable, Soft Extremities: Absent: edema
--- NOTE | 2021-12-11 09:44 | Progress Note ---
Assessment and Plan Assessment and plan: 61-year-old female with significant past medical history of COPD and fibromyalgia presenting to the emergency room with complaints of vertigo which has been ongoing throughout the day. Patient states that she has had 2 episodes of vertigo yesterday and she hardly stand straight without the room spinning. She had been taking meclizine 12.5 mg twice daily without any significant improvement. She however indicates that he subsequently started having left- sided chest pain radiating towards the left upper extremity with some associated tingling sensation. There has been no known relieving or exacerbating factor. She denies any headache, no blurry vision, no nausea or vomiting and no abdominal pain. Patient has been admitted for further evaluation and management. 12/09: Patient has been seen by neurology and cardiology. Cardiology recommended to continue neurology work-up and did not recommend any further cardiac intervention. 1- MRI brain; no acute abnormality noted 2- CTA brain and neck; no acute abnormality noted 3- Echo; EF 60 to 65% 4- ESR 5- PT therapy 6- maintain home medications 7- Scopolamine patch q 3 days prn for vertigo 8- Elevil 50 mg qhs. 9-Follow-up neurology outpatient 12/11; I discussed in detail patient's multiple tests and the reports and the consultants evaluation and recommendations Treatment and discharge planning, I answered all her questions. Patient continues to have some complaint of the other Want to talk to Assessment and plan: Patient did not want physical exam; very upset -- Atypical noncardiac chest pain, likely related to her migraine headache; Cardiology evaluation recommendations noted and appreciated Echo no abnormality, advised outpatient follow-up -- Vertigo; Neurology recommendations in-house as well as at discharge -scopolamine patch every 3 days as needed for vertigo -Elavil 50 mg nightly -Neurology follow-up outpatient -Rheumatology evaluation outpatient -Evaluation by pain clinic outpatient Extensive negative neuro work-up -Continue ASA 325 mg and Lipitor -Trial of scopolamin patch q 3 days -Amitriptylin 50 mg qhs - ESR-4 normal range -PT therapy -- Chronic headache, likely migraine -she is on Topamax 100 mg BID with lack of much improvement -Chronic use of pain medications /chronic pain syndrome -- Hx of Fibromyalgia -- cont home medications (Oxycodon 10/325 mgtid,Flexeril 10 mg tid,Neurontine decrease to 400 mg tid) -rheumatology/neurology/Chronic pain managment outpt follow up !!! --Physical therapy Wheelchair 3 in 1 bedside commode Home health with home PT -- Diabetes mellitus Accu-Chek sliding scale coverage ADA diet -- Depression -We will resume routine home medications - welbutrinXr 450 mg daily -- Hyperlipidemia -Continue routine home medications and monitor lipid profile. -- Hypertension -We will resume routine antihypertensive medication and monitor vital signs closely. -- DVT prophylaxis -Patient placed on subcutaneous heparin. -- Full code status -Patient is full code. Closely monitor the patient and adjust the management as needed Plan of care reviewed with the patient and her nurse I also discussed with case management. Possible discharge home with home health services tomorrow if stable. Casting Operator recommendations noted and appreciated History Interval history: I have seen and examined the patient at the bedside. Patient had numerous complaints about the healthcare providers And very unhappy with the care she is receiving. Patient complained that nobody told her anything about her tests and about her condition Today she says she is not feeling well Cannot give the details Patient is alert and awake not in acute distress Vital signs noted Hospitalist Physical - Physical exam Narrative exam: Patient was too upset, did not want physical exam - Constitutional Vitals: Temp Pulse Resp BP Pulse Ox 98.7 F 84 18 112/80 99 12/11/21 08:09 12/11/21 08:09 12/11/21 04:11 12/11/21 08:09 12/11/21 08:09 General appearance: Present: no acute distress, well-nourished HEART Score - HEART Score Troponin: Troponin T < 0.010 ng/mL (0.00-0.029) 12/09/21 16:47 Results - Labs CBC & Chem 7: 12/09/21 04:27 12/08/21 15:05 Labs: Laboratory Last Values WBC 5.4 K/mm3 (4.5-11.0) 12/09/21 04:27 RBC 4.61 M/mm3 (3.65-5.03) 12/09/21 04:27 Hgb 12.5 gm/dl (10.1-14.3) 12/09/21 04:27 Hct 38.7 % (30.3-42.9) 12/09/21 04:27 MCV 84 fl (79-97) 12/09/21 04:27 MCH 27 pg (28-32) L 12/09/21 04:27 MCHC 32 % (30-34) 12/09/21 04:27 RDW 15.3 % (13.2-15.2) H 12/09/21 04:27 Plt Count 242 K/mm3 (140-440) 12/09/21 04:27 Lymph % (Auto) 52.1 % (13.4-35.0) H 12/09/21 04:27 [place] % (Auto) 8.0 % (0.0-7.3) H 12/09/21 04:27 Eos % (Auto) 3.4 % (0.0-4.3) 12/09/21 04:27 Baso % (Auto) 0.5 % (0.0-1.8) 12/09/21 04:27 Lymph # (Auto) 2.8 K/mm3 (1.2-5.4) 12/09/21 04:27 [place] # (Auto) 0.4 K/mm3 (0.0-0.8) 12/09/21 04:27 Eos # (Auto) 0.2 K/mm3 (0.0-0.4) 12/09/21 04:27 Baso # (Auto) 0.0 K/mm3 (0.0-0.1) 12/09/21 04:27 Seg Neutrophils % 36.0 % (40.0-70.0) L 12/09/21 04:27 Seg Neutrophils # 1.9 K/mm3 (1.8-7.7) 12/09/21 04:27 ESR 4 mm/Hr (0-20) 12/09/21 04:27 Sodium 139 mmol/L (137-145) 12/08/21 15:05 Potassium 4.3 mmol/L (3.6-5.0) 12/08/21 15:05 Chloride 108.3 mmol/L (98-107) H 12/08/21 15:05 Carbon Dioxide 21 mmol/L (22-30) L 12/08/21 15:05 Anion Gap 14 mmol/L 12/08/21 15:05 BUN 22 mg/dL (7-17) H 12/08/21 15:05 Creatinine 0.7 mg/dL (0.6-1.2) 12/08/21 15:05 Estimated GFR > 60 ml/min 12/08/21 15:05 BUN/Creatinine Ratio 31 % 12/08/21 15:05 Glucose 87 mg/dL (65-100) 12/08/21 15:05 Calcium 9.7 mg/dL (8.4-10.2) 12/08/21 15:05 Total Bilirubin < 0.20 mg/dL (0.1-1.2) 12/08/21 15:05 AST 15 units/L (5-40) 12/08/21 15:05 ALT 24 units/L (7-56) 12/08/21 15:05 Alkaline Phosphatase 227 units/L (35-129) H 12/08/21 15:05 Troponin T < 0.010 ng/mL (0.00-0.029) 12/09/21 16:47 NT-Pro-B Natriuret Pep 28.37 pg/mL (0-900) 12/08/21 15:05 Total Protein 6.9 g/dL (6.3-8.2) 12/08/21 15:05 Albumin 4.2 g/dL (3.9-5) 12/08/21 15:05 Albumin/Globulin Ratio 1.6 % 12/08/21 15:05 [place]bar[place]/IV: Voiding Method External Female Catheter Active Medications - Current Medications Current Medications: Generic Name Dose Route Start Last Admin Trade Name Freq PRN Reason Stop Dose Admin Acetaminophen 650 mg 12/08/21 21:51 12/10/21 10:48 Acetaminophen 325 Mg Tab PO 650 mg Q4H PRN Administration Pain MILD(1-3)/Fever >100.5/RODRIGUEZ Amitriptyline HCl 50 mg 12/09/21 22:00 12/10/21 21:21 Amitriptyline 25 Mg Tab PO 50 mg QHS KENNEY Administration Arformoterol Tartrate 15 mcg 12/09/21 15:00 12/11/21 09:25 Arformoterol 15 Mcg/2 Ml Nebu IH 15 mcg Q12HRT KENNEY Administration Aspirin 325 mg 12/09/21 10:00 12/11/21 09:24 Aspirin Ec 325 Mg Tab PO 325 mg QDAY KENNEY Administration Budesonide 0.5 mg 12/09/21 15:00 12/11/21 09:24 Budesonide 0.5 Mg/2 Ml Nebu IH 0.5 mg Q12HRT KENNEY Administration Bupropion HCl 300 mg 12/09/21 12:00 12/11/21 09:24 Bupropion Xl 150 Mg Tab PO 300 mg QDAY KENNEY Administration Gabapentin 400 mg 12/09/21 14:00 12/11/21 06:48 Gabapentin 400 Mg Cap PO 400 mg Q8H KENNEY Administration Hydroxyzine Pamoate 50 mg 12/09/21 14:00 12/11/21 08:44 Hydroxyzine Pamoate 50 Mg Cap PO 50 mg Q6H KENNEY Administration Magnesium Hydroxide 30 ml 12/08/21 21:51 12/10/21 05:12 Magnesium Hydroxide (Mom) Oral Liqd Udc PO 30 ml Q4H PRN Administration Constipation Miscellaneous Medication 0.2 mg 12/09/21 20:00 12/11/21 09:25 Naldemedine Tosylate [Symproic] PO 0.2 mg DAILY KENNEY Administration Nitroglycerin 0.4 mg 12/08/21 21:51 Nitroglycerin 0.4 Mg Tab Subl SL Q5M PRN Chest Pain Ondansetron HCl 4 mg 12/08/21 21:51 12/09/21 00:39 Ondansetron 4 Mg/2 Ml Inj IV 4 mg Q8H PRN Administration Nausea And Vomiting Oxycodone/Acetaminophen 2 tab 12/09/21 13:01 12/10/21 16:41 Oxycodone /Acetaminophen 5-325mg Tab PO 2 tab Q6H PRN Administration Pain , Severe (7-10) Scopolamine 1 each 12/09/21 14:00 12/09/21 14:26 Scopolamine Transdermal Patch 72 Hr TD 1 each Q3D KENNEY Administration Sodium Chloride 10 ml 12/08/21 22:00 12/11/21 09:25 Sodium Chloride 0.9% 10 Ml Flush Syringe IV 10 ml BID KENNEY Administration Sodium Chloride 10 ml 12/08/21 21:51 Sodium Chloride 0.9% 10 Ml Flush Syringe IV PRN PRN LINE FLUSH Topiramate 100 mg 12/09/21 22:00 12/11/21 09:24 Topiramate Tab 100 Mg Tab PO 100 mg BID KENNEY Administration Tramadol HCl 50 mg 12/08/21 21:51 12/11/21 08:43 Tramadol 50 Mg Tab PO 50 mg Q6H PRN Administration Pain, Moderate (4-6)
[2021-12-11] MEDS ORDERED: LORazepam 2 MG/ML VIAL IV NR (10:37)
[2021-12-11] MEDS ORDERED: ALBUTEROL 2.5 MG/3 ML NEBU IH PRN (13:14)
--- NOTE | 2021-12-11 13:34 | Magnetic Resonance Report ---
MR brain wo con INDICATION / CLINICAL INFORMATION: CVA, DIZZINESS, HEADACHES. TECHNIQUE: Multiplanar, multisequence MR images of the brain were obtained. COMPARISON: None available. FINDINGS: INTRACRANIAL: No restricted diffusion. No hemorrhage. Ventricular caliber is normal. No extra-axial c ollection. No mass. No herniation. Major intracranial vascular flow voids are preserved. Moderate qu antity of periventricular and centrum semiovale T2 white matter hyperintensities most consistent with sequela of chronic microvascular disease. ORBITS: No significant abnormality of visualized orbits. SINUSES / MASTOIDS: Mucosal retention cysts in maxillary sinuses and right sphenoid sinus with mild m ucosal thickening. Mastoid air cells are clear. ADDITIONAL FINDINGS: None. IMPRESSION: 1. No acute intracranial abnormality. 2. Moderate sequela from chronic microvascular disease. Signer Name: Dom Bowden MD Signed: 12/11/2021 1:29 PM Workstation Name: [id number]
--- NOTE | 2021-12-11 17:16 | Event Note ---
Date: 12/11/21 Patient was very upset this morning saying that nobody told her anything, nobody came to see her, no one explained to her the test reports. I called the patient and explained in detail all the tests and reports, CT head without contrast , CTA head , CTA neck , MRI brain , echocardiogram , chest x-rays, And the consultants evaluation and recommendations and the treatment and discharge plans. I also explained physical therapy and delinquency prevention social worker evaluations and recommendations. I answered all her questions. She wanted to know different protocols. I encouraged her to check with charge nurse of the floor tomorrow. I informed the patient's nurse Ms. Heller and charge nurse Mr. Parks about my conversation with the patient.
[2021-12-11] MEDS ORDERED: guaiFENesin/CODEINE 100-10MG ORAL LIQD 5 ML PO PRN (20:21)
[2021-12-11] MEDS: AMITRIPTYLINE 25 MG TAB PO SCH (21:41)
[2021-12-12] MEDS: GABAPENTIN 400 MG CAP PO SCH (05:46)
[2021-12-12] MEDS: traMADol 50 MG TAB PO PRN (05:46)
--- NOTE | 2021-12-12 08:00 | Discharge Summary ---
Providers - Providers Date of Admission: 12/08/21 21:51 Date of discharge: 12/12/21 Attending physician: TAMARA RODRIGUEZ 12/08/21 Consult to Cardiac Rehabilitation [CONS] Routine Reason For Exam: Phase I 12/08/21 21:51 Consult to Cardiology [CONS] Routine Consulting Provider: BELKYS VARGHESE Reason For Exam: CHEST PAIN 12/08/21 23:28 Consult to Physician [CONS] Routine Comment: Consulting Provider: ROLANDO SPARKS Physician Instructions: Reason For Exam: Intractable vertigo 12/09/21 12:24 Physical Therapy Evaluation and Treat [CONS] Routine Comment: Reason For Exam: Debility 12/11/21 14:00 Occupational Therapy Evaluate and Treat [CONS] Routine Comment: Reason For Exam: Deconditioning Hospitalization Condition: Stable Hospital course: 61-year-old female with significant past medical history of COPD and fibromyalgia presenting to the emergency room with complaints of vertigo which has been ongoing throughout the day. Patient states that she has had 2 episodes of vertigo yesterday and she hardly stand straight without the room spinning. She had been taking meclizine 12.5 mg twice daily without any significant improvement. She however indicates that he subsequently started having left- sided chest pain radiating towards the left upper extremity with some associated tingling sensation. There has been no known relieving or exacerbating factor. She denies any headache, no blurry vision, no nausea or vomiting and no abdominal pain. Patient has been admitted for further evaluation and management. 12/09: Patient has been seen by neurology and cardiology. Cardiology recommended to continue neurology work-up and did not recommend any further cardiac intervention. 1- MRI brain; no acute abnormality noted 2- CTA brain and neck; no acute abnormality noted 3- Echo; EF 60 to 65% 4- ESR 5- PT therapy 6- maintain home medications 7- Scopolamine patch q 3 days prn for vertigo 8- Elevil 50 mg qhs. 9-Follow-up neurology outpatient 12/11; I discussed in detail patient's multiple tests and the reports and the consultants evaluation and recommendations Treatment and discharge planning, I answered all her questions. Patient continues to have some complaint of the other Want to talk to Assessment and plan: Patient did not want physical exam; very upset -- Atypical noncardiac chest pain, likely related to her migraine headache; Cardiology evaluation recommendations noted and appreciated Echo no abnormality, advised outpatient follow-up -- Vertigo; Neurology recommendations in-house as well as at discharge -scopolamine patch every 3 days as needed for vertigo -Elavil 50 mg nightly -Neurology follow-up outpatient -Rheumatology evaluation outpatient -Evaluation by pain clinic outpatient Extensive negative neuro work-up -Continue ASA 325 mg and Lipitor -Trial of scopolamin patch q 3 days -Amitriptylin 50 mg qhs - ESR-4 normal range -PT therapy -- Chronic headache, likely migraine -she is on Topamax 100 mg BID with lack of much improvement -Chronic use of pain medications /chronic pain syndrome -- Hx of Fibromyalgia -- cont home medications (Oxycodon 10/325 mgtid,Flexeril 10 mg tid,Neurontine decrease to 400 mg tid) -rheumatology/neurology/Chronic pain managment outpt follow up !!! --Physical therapy Wheelchair 3 in 1 bedside commode Home health with home PT -- Diabetes mellitus Accu-Chek sliding scale coverage ADA diet -- Depression -We will resume routine home medications - welbutrinXr 450 mg daily -- Hyperlipidemia -Continue routine home medications and monitor lipid profile. -- Hypertension -We will resume routine antihypertensive medication and monitor vital signs closely. -- DVT prophylaxis -Patient placed on subcutaneous heparin. -- Full code status -Patient is full code. Closely monitor the patient and adjust the management as needed Plan of care reviewed with the patient and her nurse I also discussed with case management. Disposition: 06 HOME HEALTH CARE SERVICE Core Measure Documentation - Palliative Care Palliative Care/ Comfort Measures: Not Applicable Exam - Constitutional Vitals: Temp Pulse Resp BP Pulse Ox 97.9 F 83 16 98/69 97 12/12/21 07:31 12/12/21 07:31 12/12/21 07:31 12/12/21 07:31 12/12/21 07:31 Plan Activity: advance as tolerated, fall precautions Diet: other (Cardiac diet as tolerated) Special Instructions: physical therapy (Home health physical therapy) Additional Instructions: Fall precautions. If you have worsening symptoms contact MD or go to the nearest emergency room as needed. Advised to follow primary care physician in 1 week advised to follow private neurologist in 1 to 2 weeks. Advised to follow alarm signal operator in 1 to 2 weeks, Follow up with: ALO SAMUEL [Other] - 3-5 Days HONORIO JUAN MD [Staff Physician] - 7 Days PEDRO ASHTON MD [Staff Physician] - 7 Days Prescriptions: Meclizine [Antivert] 25 mg PO TID PRN 10 Days #30 tab PRN Reason: Vertigo Amitriptyline [Elavil] 50 mg PO QHS #14 tablet Scopolamine [Transderm-Scop] 1 each TD Q3D #7 patch
[2021-12-12] MEDS ORDERED: SODIUM CHLORIDE 0.9% 250ML 250 ML IV ONE (09:21)
[2021-12-12] MEDS: ARFORMOTEROL 15 MCG/2 ML NEBU IH SCH (09:23)
[2021-12-12] MEDS: BUDESONIDE 0.5 MG/2 ML NEBU IH SCH (09:23)
--- NOTE | 2021-12-12 10:34 | Progress Note ---
Assessment and Plan 1. Paroxysmal vertigo 2. Acute migraine headaches 3. History of fibromyalgia Plan. Echocardiogram done shows normal left ventricular size and function. Patient's presenting symptoms are noncardiac. This test given low pretest probability for ischemic coronary artery disease can be done as an outpatient. Subjective Date of service: 12/12/21 Interval history: No cardiac symptoms. Objective Vital Signs Temp Pulse Pulse Resp Resp BP Pulse Ox 12/12/21 07:31 97.9 F 83 16 98/69 97 12/11/21 21:25 90 19 111/62 97 12/11/21 20:10 90 20 12/11/21 20:00 98 12/11/21 16:43 98.0 F 90 103/72 98 - Physical Examination General: Appears Well, No Apparent Distress HEENT: Positive: PERRL, Normocephaly, Mucus Membranes Moist Neck: Positive: neck supple, trachea midline. Negative: JVD/HJR Cardiac: Positive: Regular Rate, S1/S2, PMI, Dilated, Laterally Displaced. Neg ative: S3 Lungs: Positive: clear to auscultation, No Wheeze, Rales, Rhonchi Neuro: Positive: Grossly Intact Abdomen: Positive: Unremarkable, Soft Extremities: Absent: edema
[2021-12-12] MEDS: buPROPion XL 150 MG TAB PO SCH (10:37)
[2021-12-12] MEDS: ASPIRIN EC 325 MG TAB PO SCH (10:38)
[2021-12-12] MEDS: TOPIRAMATE TAB 100 MG TAB PO SCH (10:38)
[2021-12-12] MEDS: SCOPOLAMINE TRANSDERMAL PATCH 72 HR TD SCH (10:42)
[2021-12-12] MEDS: NALDEMEDINE TOSYLATE 0.2 MG PO SCH (10:42)
[2021-12-12 11:46] VITALS: BP 112/75
--- NOTE | 2021-12-12 12:54 | Cat Scan Report ---
NONENHANCED CT SCAN OF THE HEAD: INDICATION / CLINICAL INFORMATION: 61 years Female; h/o fall, c/o head ache. TECHNIQUE: Routine CT head without contrast. All CT scans at this location are performed using CT dos e reduction for ALARA by means of automated exposure control. COMPARISON: MR scan of the brain from 03/13/[address] scan of the head from November 30 02/12/2022 FINDINGS: BRAIN / INTRACRANIAL CONTENTS: No acute hemorrhage, mass effect, midline shift, hydrocephalus, or acu te, large territorial infarct. No chronic infarct or focal atrophy. Normal brain volume and ventricul ar/sulcal size for age. No significant white matter abnormality. CRANIOCERVICAL JUNCTION: No significant abnormality. ORBITS: No significant abnormality of visualized orbits. SINUSES / MASTOIDS: Right sphenoid sinus is opacified; unchanged; retention cysts in the inferior max illary sinuses bilaterally ADDITIONAL FINDINGS: Trapped fluid in right petrous apex air cells IMPRESSION: No acute focal parenchymal lesion Signer Name: Papito Mendoza MD Signed: 12/12/2021 12:49 PM Workstation Name: [id number]
--- NOTE | 2021-12-12 13:08 | Event Note ---
Date: 12/12/21 CT head without contrast: no acute focal parenchymal lesion
== END 2021-12-12 15:00 | disposition home health service (06) | DRG 103 ==
LOC: ED 14:27 → 4A 21:51
PROVIDERS: ADMIT Internal Medicine Geriatric Medicine; ATTEND Internal Medicine
DX: G43.909 Migraine, unspecified, not intractable, without status migrainosus (principal); R42 Dizziness and giddiness; J44.9 Chronic obstructive pulmonary disease, unspecified; M79.7 Fibromyalgia; F32.A Depression, unspecified; E78.5 Hyperlipidemia, unspecified; G89.4 Chronic pain syndrome; E11.9 Type 2 diabetes mellitus without complications; I10 Essential (primary) hypertension; Z79.899 Other long term (current) drug therapy
CPT/HCPCS: 36415; 70450; 70496; 70498; 70551; 71045; 80053; 83880; 84484; 85025; 85652; 93005; 93306; 94640; G0378; C8929; J1170; J2060; J2405; J7050; Q0177; Q9967